=== PATIENT | female | born 1940 | race Caucasian/White ===

== ENCOUNTER → 2024-02-12 08:50 | Outpatient (REF) | payer MEDICARE, BC, SELFPAY ==
[2024-02-12 12:54] LABS: ALT (SGPT) 17 U/L (0-35); AST (SGOT) 30 U/L (14-36); Albumin 3.7 g/dl (3.5-5.0); Alkaline Phosphatase 47 U/L (38-126); Blood Urea Nitrogen 24 mg/dl (7-17); Calcium 9.7 mg/dl (8.4-10.2); Carbon Dioxide 30 mmol/L (22-30); Chloride 101 mmol/L (98-107); Glucose 96 mg/dl (70-99); HDL Cholesterol 49 mg/dl; LDL Cholesterol, Calculated 65 mg/dl; Potassium 3.8 mmol/L (3.5-5.1); Sodium 133 mmol/L (135-145); Total Bilirubin 0.8 mg/dl (0.2-1.3); Total Cholesterol 130 mg/dl (50-199); Total Protein 6.3 g/dl (6.3-8.2); Triglyceride 83 mg/dl (10-149); Very Low Density Lipoprotein 16 mg/dl (0-30); eGFR > 60.00
[2024-02-12 13:17] LABS: TSH Reflex To Free T4 1.62 uIU/ml (0.47-4.68)
[2024-02-12 13:20] LABS: % Basophils 0.5 % (0-2); % Eosinophils 4.8 % (0-6); % Immature Granulocytes 0.3 % (0-0.5); % Lymphocytes 22.5 % (20.5-51.1); % Monocytes 7.9 % (1.7-9.3); Absolute Eosinophils 0.3 10^3/uL (0-0.7); Absolute Lymphocytes 1.3 10^3/uL (1.2-3.4); Absolute Monocytes 0.5 10^3/uL (0.1-0.6); Absolute Neutrophils 3.7 10^3/uL (1.4-6.5); Hematocrit 35.3 % (37.0-47.0); Hemoglobin 12.4 g/dL (12.0-16.0); Mean Corp Hgb Conc. 35.1 g/dL (33.0-37.0); Mean Corpuscular Hgb 30.9 pg (27.0-31.0); Mean Platelet Volume 10.9 fL (7.4-10.4); Nucleated Red Blood Cells % 0 %; Platelet Count 138 10^3/uL (130-400); Red Blood Cell Count 4.01 10^6/uL (4.20-5.40); Red Cell Dist. Width 13.2 % (11.5-14.5); White Blood Cell Count 5.8 10^3/uL (4.8-10.8)
== END ==
LOC: HWLAB 08:50
PROVIDERS: ATTENDING PHYSICIAN Nurse Practitioner Family
DX: I10 Essential (primary) hypertension (principal); E78.2 Mixed hyperlipidemia; N32.81 Overactive bladder; I70.0 Atherosclerosis of aorta; G57.93 Unspecified mononeuropathy of bilateral lower limbs; R73.01 Impaired fasting glucose; M54.9 Dorsalgia, unspecified; Z12.31 Encounter for screening mammogram for malignant neoplasm of breast; Z78.0 Asymptomatic menopausal state; C44.91 Basal cell carcinoma of skin, unspecified; M25.559 Pain in unspecified hip
CPT/HCPCS: 36415; 80053; 80061; 83036; 84443; 85025

== ENCOUNTER → 2024-02-23 09:12 | Outpatient (REF) | payer MEDICARE, BC, SELFPAY ==
[2024-02-23 12:36] LABS: INR 1.14; PT 14.4 Sec (11.4-14.6)
== END ==
LOC: HWLAB 09:12
PROVIDERS: ATTENDING PHYSICIAN Nurse Practitioner Family; REFERRING PHYSICIAN Orthopaedic Surgery
DX: R79.1 Abnormal coagulation profile (principal)
CPT/HCPCS: 36415; 85610

== ENCOUNTER → 2024-08-20 09:18 | Outpatient (REF) | payer MEDICARE, BC, SELFPAY ==
[2024-08-20 12:22] LABS: % Basophils 0.5 % (0-2); % Eosinophils 4.1 % (0-6); % Immature Granulocytes 0.3 % (0-0.5); % Lymphocytes 24.1 % (20.5-51.1); % Monocytes 9.2 % (1.7-9.3); % Neutrophils 61.8 % (42.2-75.2); Absolute Eosinophils 0.2 10^3/uL (0-0.7); Absolute Lymphocytes 1.4 10^3/uL (1.2-3.4); Absolute Monocytes 0.5 10^3/uL (0.1-0.6); Absolute Neutrophils 3.6 10^3/uL (1.4-6.5); Hematocrit 33.6 % (37.0-47.0); Hemoglobin 11.6 g/dL (12.0-16.0); Mean Corp Hgb Conc. 34.5 g/dL (33.0-37.0); Mean Corpuscular Hgb 29.3 pg (27.0-31.0); Mean Corpuscular Volume 84.8 fL (81.0-99.0); Mean Platelet Volume 10.4 fL (7.4-10.4); Nucleated Red Blood Cells % 0 %; Platelet Count 135 10^3/uL (130-400); Red Blood Cell Count 3.96 10^6/uL (4.20-5.40); Red Cell Dist. Width 14.6 % (11.5-14.5); White Blood Cell Count 5.9 10^3/uL (4.8-10.8)
[2024-08-20 12:31] LABS: ALT (SGPT) 17 U/L (0-35); AST (SGOT) 28 U/L (14-36); Albumin 3.7 g/dl (3.5-5.0); Alkaline Phosphatase 49 U/L (38-126); Blood Urea Nitrogen 22 mg/dl (7-17); Calcium 9.1 mg/dl (8.4-10.2); Carbon Dioxide 27 mmol/L (22-30); Chloride 100 mmol/L (98-107); Glucose 86 mg/dl (70-99); HDL Cholesterol 48 mg/dl; LDL Cholesterol, Calculated 62 mg/dl; Potassium 4.2 mmol/L (3.5-5.1); Sodium 140 mmol/L (135-145); Total Bilirubin 0.6 mg/dl (0.2-1.3); Total Cholesterol 126 mg/dl (50-199); Total Protein 6.3 g/dl (6.3-8.2); Triglyceride 82 mg/dl (10-149); Very Low Density Lipoprotein 16 mg/dl (0-30); eGFR > 60.00
[2024-08-20 13:02] LABS: TSH Reflex To Free T4 2.02 uIU/ml (0.47-4.68)
[2024-08-20 14:20] LABS: Glycohemoglobin (HgbA1c) 5.7 % (4.0-5.6)
[2024-08-20 15:07] LABS: Iron 59 ug/dl (37-170)
[2024-08-20 15:16] LABS: Percent Saturation 19 % (20-50); Total Iron Binding Capacity 308 ug/dl (265-497)
[2024-08-20 15:43] LABS: Ferritin 34.8 ng/ml (11.1-264.0)
== END ==
LOC: HWLAB 09:18
PROVIDERS: ATTENDING PHYSICIAN Nurse Practitioner Family
DX: Z13.31 Encounter for screening for depression (principal); I10 Essential (primary) hypertension; E78.2 Mixed hyperlipidemia; N32.81 Overactive bladder; I70.0 Atherosclerosis of aorta; G57.93 Unspecified mononeuropathy of bilateral lower limbs; R73.01 Impaired fasting glucose; M54.9 Dorsalgia, unspecified; Z78.0 Asymptomatic menopausal state; C44.91 Basal cell carcinoma of skin, unspecified; D64.9 Anemia, unspecified
CPT/HCPCS: 36415; 80053; 80061; 82728; 83036; 83540; 83550; 84443; 85025

== ENCOUNTER → 2024-12-17 10:01 | Outpatient (REF) | payer MEDICARE, BC, SELFPAY ==
[2024-12-17 12:36] LABS: Iron 79 ug/dl (37-170)
[2024-12-17 12:48] LABS: Percent Saturation 24 % (20-50); Total Iron Binding Capacity 324 ug/dl (265-497)
[2024-12-17 12:53] LABS: % Basophils 0.8 % (0-2); % Eosinophils 4.4 % (0-6); % Immature Granulocytes 0.2 % (0-0.5); % Lymphocytes 27.4 % (20.5-51.1); % Monocytes 8.3 % (1.7-9.3); % Neutrophils 58.9 % (42.2-75.2); Absolute Eosinophils 0.2 10^3/uL (0-0.7); Absolute Lymphocytes 1.3 10^3/uL (1.2-3.4); Absolute Monocytes 0.4 10^3/uL (0.1-0.6); Absolute Neutrophils 2.8 10^3/uL (1.4-6.5); Hematocrit 38.3 % (37.0-47.0); Hemoglobin 12.8 g/dL (12.0-16.0); Mean Corp Hgb Conc. 33.4 g/dL (33.0-37.0); Mean Corpuscular Hgb 30.4 pg (27.0-31.0); Mean Platelet Volume 10.3 fL (7.4-10.4); Nucleated Red Blood Cells % 0 %; Platelet Count 143 10^3/uL (130-400); Red Blood Cell Count 4.21 10^6/uL (4.20-5.40); Red Cell Dist. Width 13.6 % (11.5-14.5); White Blood Cell Count 4.8 10^3/uL (4.8-10.8)
[2024-12-17 13:13] LABS: Ferritin 27.7 ng/ml (11.1-264.0)
[2024-12-17 13:28] LABS: Vitamin B12 > 1000 pg/ml (239-931)
== END ==
LOC: HWLAB 10:01
PROVIDERS: ATTENDING PHYSICIAN Nurse Practitioner Family
DX: D64.9 Anemia, unspecified (principal); G62.9 Polyneuropathy, unspecified
CPT/HCPCS: 82607; 82728; 83540; 83550; 85025

== ENCOUNTER → 2025-01-13 12:57 | Outpatient (REF) | payer MEDICARE, BC, SELFPAY | LOC: HWWDC 12:57 | PROVIDERS: ATTENDING PHYSICIAN Nurse Practitioner Family | DX: Z12.31 Encounter for screening mammogram for malignant neoplasm of breast (principal) | CPT/HCPCS: 77063; 77067 ==

== ENCOUNTER → 2025-03-01 09:26 | Outpatient (REF) | payer MEDICARE, BC, SELFPAY ==
[2025-03-01 13:00] LABS: % Basophils 0.7 % (0-2); % Eosinophils 3.4 % (0-6); % Immature Granulocytes 0.3 % (0-0.5); % Monocytes 7.6 % (1.7-9.3); Absolute Eosinophils 0.2 10^3/uL (0-0.7); Absolute Lymphocytes 1.4 10^3/uL (1.2-3.4); Absolute Monocytes 0.5 10^3/uL (0.1-0.6); Absolute Neutrophils 3.8 10^3/uL (1.4-6.5); Hematocrit 37.3 % (37.0-47.0); Hemoglobin 12.9 g/dL (12.0-16.0); Mean Corp Hgb Conc. 34.6 g/dL (33.0-37.0); Mean Corpuscular Hgb 30.9 pg (27.0-31.0); Mean Corpuscular Volume 89.2 fL (81.0-99.0); Mean Platelet Volume 10.8 fL (7.4-10.4); Nucleated Red Blood Cells % 0 %; Platelet Count 142 10^3/uL (130-400); Red Blood Cell Count 4.18 10^6/uL (4.20-5.40); Red Cell Dist. Width 13.1 % (11.5-14.5); White Blood Cell Count 5.9 10^3/uL (4.8-10.8)
[2025-03-01 13:09] LABS: ALT (SGPT) 17 U/L (0-35); AST (SGOT) 27 U/L (14-36); Albumin 4.1 g/dl (3.5-5.0); Alkaline Phosphatase 52 U/L (38-126); Blood Urea Nitrogen 25 mg/dl (7-17); Calcium 9.8 mg/dl (8.4-10.2); Carbon Dioxide 30 mmol/L (22-30); Chloride 101 mmol/L (98-107); Glucose 102 mg/dl (70-99); HDL Cholesterol 55 mg/dl; LDL Cholesterol, Calculated 79 mg/dl; Potassium 4.1 mmol/L (3.5-5.1); Sodium 139 mmol/L (135-145); Total Bilirubin 0.7 mg/dl (0.2-1.3); Total Cholesterol 150 mg/dl (50-199); Total Protein 6.7 g/dl (6.3-8.2); Triglyceride 81 mg/dl (10-149); Very Low Density Lipoprotein 16 mg/dl (0-30); eGFR > 60.00
[2025-03-01 13:32] LABS: TSH Reflex To Free T4 1.85 uIU/ml (0.47-4.68)
[2025-03-01 13:51] LABS: Vitamin B12 946 pg/ml (239-931)
[2025-03-02 10:13] LABS: Glycohemoglobin (HgbA1c) 5.8 % (4.0-5.6)
== END ==
LOC: HWLAB 09:26
PROVIDERS: ATTENDING PHYSICIAN Nurse Practitioner Family; REFERRING PHYSICIAN Internal Medicine Rheumatology
DX: I10 Essential (primary) hypertension (principal); E78.2 Mixed hyperlipidemia; N32.81 Overactive bladder; I70.0 Atherosclerosis of aorta; G57.93 Unspecified mononeuropathy of bilateral lower limbs; R73.01 Impaired fasting glucose; M54.9 Dorsalgia, unspecified; Z78.0 Asymptomatic menopausal state; C44.91 Basal cell carcinoma of skin, unspecified; M25.559 Pain in unspecified hip; Z79.899 Other long term (current) drug therapy
CPT/HCPCS: 36415; 80053; 80061; 82607; 83036; 84443; 85025

== ENCOUNTER 2025-04-18 16:04 | Emergency (ER) | payer MEDICARE, BC, SELFPAY ==
[2025-04-18 16:08] VITALS: BP 187/72
--- NOTE | 2025-04-18 17:47 | ED.GENMED ---
History of Present Illness
General
Chief Complaint: Fall
Source: patient
Exam Limitations: none
Time Seen by Provider: 04/18/25 17:20
Nursing documentation reviewed up to this point in time: agreed with
History of Present Illness
History of Present Illness:
Patient is a 4-year female presents to the ER for evaluation. Patient was sent by PCPs office. Patient reports about 8 PM last night she was walking with her roller and tripped over her rug falling back landing on her back and head. She hit the
back of her head and also in her low back. She went to her primary care office prior to arrival sent here for exam. She denies headache now not denies any nausea vomiting. She does complain of however of low back pain. In addition while at the
PCPs office it was found that she had increasing swelling to her left lower extremity. This is new. She does have some mild bilateral swelling but reports left leg started swelling recently and she has discomfort to the area. She is not on blood
thinners no aspirin as well.
Past History
Past History
ED Past Medical History: HTN, Hypercholesterolemia and Other (Heart murmur)
ED Past Surgical History: Orthopedic; Negative Cholecystectomy
Social History
Personal:
Living: with family
Review of Systems
Review of Systems
Allergies reviewed?: Yes
All Other Systems: ROS reviewed and negative except as documented in HPI and ROS
Constitutional: Reports no symptoms; Denies fever, fatigue or chills
Respiratory: Reports no symptoms
Cardiac: Reports no symptoms
ABD/GI: Reports no symptoms
: Reports no symptoms
Musculoskeletal: Reports back pain and other (increased swelling to lle )
Skin: Reports no symptoms
Neurological: Reports no symptoms; Denies headache
Hematologic/Lymphatic: Reports no symptoms
Psychiatric: Reports no symptoms
Phy Exam
General Physical Exam
General Presentation: no apparent distress
General age: appears stated age
General Skin: warm and dry
General Habitus: elderly
General Mental: alert
General Hydration: appears well hydrated
Eye Exam
Eye Exam: PERRL and EOMI
Eye Exam General: PERRL: bilateral and EOM intact: bilateral
Pupil Exam: Bilateral: round and reactive
Neurological Exam
Neurological Exam: alert and oriented x3
Musculoskeletal Exam
Musculoskeletal Exam: full ROM and other (+ tenderness to lumbar region no ecchymosis or abrasions; b/l l/e with strong pulses mild swelling b/l however increased swelling/tenderness to left lower leg ; no erythema )
Skin Exam
Skin Exam: normal color and warm/dry
Psychiatric Exam
Psychiatric Exam: normal mood/affect
Course
Orders/Labs/Results
Orders:
Orders
04/18/25 16:12
CR Lumbar Spine Comp Min 4 Vw* Urgent
Comment:
Reason For Exam: injury/fall
04/18/25 17:46
CT Cervical Spine W/o Iv Contr Urgent
Comment:
Reason For Exam: trauma
CT Head W/o Iv Contrast Urgent
Comment:
Reason For Exam: trauma
04/18/25 17:47
Venous Doppler Lwr Ext Bilat [US Periph Venous LOWER Ext Ismael] Urgent
Comment:
Reason For Exam: swelling b/l l/e left greater than right
Vital Signs
Initial and Last Documented VS:
Initial Vital Signs
Temp Pulse Resp BP Pulse Ox
98.1 F 55 20 187/72 95
04/18/25 16:08 04/18/25 16:08 04/18/25 16:08 04/18/25 16:08 04/18/25 16:08
Last Documented Vital Signs
Temp Pulse Resp BP Pulse Ox
98.1 F 59 18 188/78 95
04/18/25 16:08 04/18/25 21:32 04/18/25 21:32 04/18/25 21:32 04/18/25 21:32
MDM/Problems Addressed
Differential Diagnosis Includes:
lumbar contusion , lumbar compression fracture , dvt, dependent edema, intracranial head injury
MDM/Problems Addressed:
Patient presents awake alert no acute distress she describes a mechanical fall tripping on the carpet last night she did hit her head and her low back. She saw her family doctor today for fall and she was sent to the ER for evaluation. She does
report that she has some swelling of her left lower extremity and she was sent for further evaluation and ultrasound. Ultrasound negative. She has no obvious head injury on exam CT head negative. X-rays of her back are negative.
Pt in no distress, her BP is elevated however she is asymptomatic no complaints of headache blurry vision no chest pain shortness of breath. She did take her Toprol twice a day. She is on 100 mg twice daily.
pt stable for d/c home with close outpatient follow-up family doctor for blood pressure check as well as reevaluation of symptoms
*Radiology
Radiology exam reviewed: radiology read reviewed
*Pulse Oximetry
Patient hypoxic: no
*Critical Care Note
Total Time (30-74mins, 75-104mins- exclusive of procedures): Not Applicable
ED Attending Note
-
Portions of this chart may have been created with voice recognition software.� Occasional wrong word or��sound alike� substitutions may have occurred due to the inherent limitations of voice recognition software.
Discharge Plan
Departure
Patient Disposition: Home (Routine Discharge)
Date of Disposition: 04/18/25
Time of Disposition: 21:44
Patient with high blood pressure during this ER visit?: Yes
Condition: Fair
Covid-19: Not Applicable
Discharge Problem:
Lumbar contusion, Leg edema, Fall
Instructions: Swelling, Head Injury in Adults (DC), Contusion (DC), BLOOD PRESSURE
Prescriptions:
No Action
metoprolol succinate 100 MG tablet extended release 24 hr
100 mg PO BID
doxazosin [Cardura] 8 MG tablet
8 mg PO BID
fluvastatin [Lescol] 20 MG capsule
20 mg PO DAILY
garlic 1 CAP capsule
1 cap PO DAILY
magnesium oxide 250 MG tablet
250 mg PO DAILY
olmesartan-hydrochlorothiazide [Benicar HCT] 40 MG/25 MG tablet
1 tab PO DAILY
darifenacin [Enablex] 15 MG tablet extended release 24 hr
15 mg PO DAILY
lbmaeudw-sob-IC-lycopen-lutein [Centrum Silver] 1 EACH tablet
1 ea PO DAILY
doxycycline monohydrate [Oracea] 40 MG capsule,IR - delay rel,biphase
40 mg PO DAILY
calcium carbonate-vitamin D3 [Calcium 500 + D] 1 EACH tablet
1 ea PO DAILY
psyllium husk [Metamucil Fiber Singles] 1 PACKET powder in packet
1 packet PO DAILY
omega 4-tko-zwm-fish oil 1,000 MG capsule
1,000 mg PO DAILY
Referrals:
Rene Arteaga CRNP [Family Provider] -
Activity Restrictions/Additional Instructions:
Your ultrasound was negative for blood clot. Your lumbar x-ray was negative for fracture.
As discussed please keep your legs elevated as much as possible. Ice your back. You may take Tylenol for discomfort. Please have your family doctor reevaluate you in the next of days .
As discussed your blood pressure was elevated please have this rechecked by your family doctor the next several days as well please continue to take your blood pressure medicine and return if any worsening of symptoms
Interventions
Interventions:
*Risk Screen - Suicide Last Done: 04/18/25 17:30
*General Assessment Last Done: 04/18/25 16:08
*Neglect/Abuse Screening Last Done: 04/18/25 17:30
*ED- Fall Risk Assessment Last Done: 04/18/25 21:53
*ED COVID-19 Vaccine History Last Done: 04/18/25 21:53
*Nursing Disposition Last Done: 04/18/25 21:52
ED-Musculoskeletal Assessment Last Done: 04/18/25 17:30
ED- Neurological Assessment Last Done: 04/18/25 17:30
ED-Skin Assessment Last Done: 04/18/25 17:30
Discharge Date and Time
Discharge Date/Time: 04/18/25 21:53
Print Language: [email or web address]
[2025-04-18 20:41] VITALS: BP 201/83
[2025-04-18 21:32] VITALS: BP 188/78
== END 2025-04-18 21:53 | disposition home or self-care (01) ==
LOC: EMR 16:04
PROVIDERS: EMERGENCY PHYSICIAN Emergency Medicine; FAMILY PHYSICIAN Nurse Practitioner Family
DX: S30.0XXA Contusion of lower back and pelvis, initial encounter (principal); W18.09XA Striking against other object with subsequent fall, initial encounter; R60.0 Localized edema; E78.00 Pure hypercholesterolemia, unspecified; I10 Essential (primary) hypertension
CPT/HCPCS: 99284; 70450; 72110; 72125; 93970

== ENCOUNTER → 2025-04-21 11:42 | Outpatient (REF) | payer MEDICARE, BC, SELFPAY ==
[2025-04-21 16:35] LABS: Urine Albumin 2+ (Neg - Trace); Urine Bilirubin Negative (Negative); Urine Character Slightly Cloudy (Clear); Urine Color Yellow; Urine Glucose Negative (Negative); Urine Ketone Negative (Negative); Urine Leukocyte 3+ (Negative); Urine Nitrite Negative (Negative); Urine Occult Blood 4+ (Negative); Urine Urobilinogen Negative (Neg - 1+)
[2025-04-21 16:50] LABS: Urine Bacteria Many (Negative); Urine Squamous Cell 0-2 /LPF (Few); Urine White Cell >100 /HPF (0-5)
[2025-04-21 17:02] LABS: NT-proBNP 993 pg/ml
== END ==
LOC: HWLAB 11:42
PROVIDERS: ATTENDING PHYSICIAN Nurse Practitioner Family
DX: R93.89 Abnormal findings on diagnostic imaging of other specified body structures (principal); M79.89 Other specified soft tissue disorders; R82.90 Unspecified abnormal findings in urine
CPT/HCPCS: 36415; 71046; 81003; 81015; 83880; 87077; 87086

== ENCOUNTER → 2025-05-02 12:59 | Outpatient (REF) | payer MEDICARE, BC, SELFPAY | LOC: HWLAB 12:59 | PROVIDERS: ATTENDING PHYSICIAN Nurse Practitioner Family | DX: N39.0 Urinary tract infection, site not specified (principal) | CPT/HCPCS: 87077; 87086 ==

== ENCOUNTER → 2025-05-12 13:20 | Outpatient (REF) | payer MEDICARE, BC, SELFPAY ==
[2025-05-12 16:47] LABS: Blood Urea Nitrogen 18 mg/dl (7-17); Calcium 9.6 mg/dl (8.4-10.2); Carbon Dioxide 30 mmol/L (22-30); Chloride 103 mmol/L (98-107); Glucose 107 mg/dl (70-99); Potassium 4.4 mmol/L (3.5-5.1); Sodium 136 mmol/L (135-145); eGFR > 60.00
== END ==
LOC: HWLAB 13:20
PROVIDERS: ATTENDING PHYSICIAN Student in an Organized Health Care Education/Training Program; FAMILY PHYSICIAN Nurse Practitioner Family
DX: I10 Essential (primary) hypertension (principal)
CPT/HCPCS: 36415; 80048

== ENCOUNTER → 2025-06-06 13:27 | Outpatient (REF) | payer MEDICARE, BC, SELFPAY ==
[2025-06-06 16:16] LABS: Blood Urea Nitrogen 25 mg/dl (7-17); Calcium 9.7 mg/dl (8.4-10.2); Carbon Dioxide 30 mmol/L (22-30); Chloride 103 mmol/L (98-107); Glucose 92 mg/dl (70-99); Potassium 4.2 mmol/L (3.5-5.1); Sodium 137 mmol/L (135-145); eGFR > 60.00
== END ==
LOC: HWLAB 13:27
PROVIDERS: ATTENDING PHYSICIAN Nurse Practitioner Family
DX: R25.2 Cramp and spasm (principal)
CPT/HCPCS: 36415; 80048

== ENCOUNTER → 2025-09-01 09:45 | Outpatient (REF) | payer MEDICARE, BC, SELFPAY ==
[2025-09-01 12:17] LABS: Hematocrit 37.4 % (37.0-47.0); Hemoglobin 12.8 g/dL (12.0-16.0); Mean Corp Hgb Conc. 34.2 g/dL (33.0-37.0); Mean Corpuscular Volume 91.2 fL (81.0-99.0); Nucleated Red Blood Cells % 0 %; Platelet Count 137 10^3/uL (130-400); Red Cell Dist. Width 12.8 % (11.5-14.5)
[2025-09-01 12:43] LABS: ALT (SGPT) 16 U/L (0-35); AST (SGOT) 26 U/L (14-36); Albumin 4.0 g/dl (3.5-5.0); Alkaline Phosphatase 44 U/L (38-126); Blood Urea Nitrogen 18 mg/dl (7-17); Calcium 9.4 mg/dl (8.4-10.2); Carbon Dioxide 32 mmol/L (22-30); Chloride 104 mmol/L (98-107); Glucose 100 mg/dl (70-99); HDL Cholesterol 55 mg/dl; LDL Cholesterol, Calculated 87 mg/dl; Potassium 3.9 mmol/L (3.5-5.1); Sodium 140 mmol/L (135-145); Total Protein 6.7 g/dl (6.3-8.2); Very Low Density Lipoprotein 16 mg/dl (0-30); eGFR > 60.00
[2025-09-01 12:56] LABS: Glycohemoglobin (HgbA1c) 5.7 % (4.0-5.6)
== END ==
LOC: HWLAB 09:45
PROVIDERS: ATTENDING PHYSICIAN Nurse Practitioner Family; REFERRING PHYSICIAN Internal Medicine Rheumatology
DX: Z00.00 Encounter for general adult medical examination without abnormal findings (principal); I10 Essential (primary) hypertension; Z13.31 Encounter for screening for depression; E78.2 Mixed hyperlipidemia; N32.81 Overactive bladder; I70.0 Atherosclerosis of aorta; G57.93 Unspecified mononeuropathy of bilateral lower limbs; R73.01 Impaired fasting glucose; M54.9 Dorsalgia, unspecified; Z12.31 Encounter for screening mammogram for malignant neoplasm of breast; Z78.0 Asymptomatic menopausal state; C44.91 Basal cell carcinoma of skin, unspecified; M25.559 Pain in unspecified hip
CPT/HCPCS: 36415; 80053; 80061; 83036; 84443; 85025